=== PATIENT | male | born 1995 | race African-American/Black ===

== ENCOUNTER 2022-04-09 11:23 | Emergency (ER) | payer MEDICAID, SELFPAY ==
--- NOTE | ~2022-04-09 | US_ITS ---
EXAMINATION: US SCROTUM CLINICAL INFORMATION: Pain. Rule out torsion. History of torsion.. COMPARISON: November 30, 2020 and December 30, 2015 TECHNIQUE: A sonogram of the scrotum was performed assessing brothers-scale appearance and color Doppler flow. Spectral Doppler analysis of the arterial and venous flow were performed in the testes bilaterally. FINDINGS: RIGHT: Right testicle measures 5.2 x 2.4 x 2.9 cm, volume 19.3 mL. No focal testicular parenchymal lesions are visualized. Spectral Doppler analysis of the arterial and venous flow is normal in the right testis. Right epididymal head is normal in size. No right hydrocele or varicocele is seen. Right epididymal Doppler flow is normal. LEFT: Left testicle measures 4.2 x 2.0 x 3.6 cm, volume 15.8 mL. No focal testicular parenchymal lesions are visualized. Spectral Doppler analysis of the arterial and venous flow is normal in the left testis. Left epididymal head is normal in size. No left hydrocele or varicocele is seen. Left epididymal Doppler flow is normal. US/US scrotum IMPRESSION: Normal scrotal ultrasound examination without evidence of torsion.
[2022-04-09 11:34] VITALS: BP 122/84; PULSE 70; O2SAT 99; BMI 23.4
--- NOTE | 2022-04-09 11:37 | ED_ITS ---
HPI - Male Genitourinary General Chief complaint: Urogenital-Male Stated complaint: TESTICULAR PAIN, FROM [employer]USTODY PER EMS Time Seen by Provider: 04/09/22 11:32 Source: patient Mode of arrival: EMS History of Present Illness HPI Narrative: this is a 26 years old male under police custody presented with a chief complaint of left testicular pain x6 hour. 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 Denies any vomiting any diarrhea MD Complaint: testicle pain and testicle swelling Onset (ago): hour(s) (6) Duration: constant Location: left testicle Radiation: left testicle Quality: aching Relieving factors: none Exacerbating factors: none Related Data Allergies Allergy/AdvReac Type Severity Reaction Status Date / Time bee pollen [bee stings] Allergy Swelling Verified 04/09/22 11:36 Review of Systems Eyes: Eyes: Reports no additional eye complaints ENT: Reports system reviewed and no additional complaints, except as documented Cardiovascular: Cardiovascular: Reports no additional cardiovascular complaints Respiratory: Respiratory: Reports no additional respiratory complaints Musculoskeletal: Musculoskeletal: Reports no additional musculoskeletal complaints Endocrine: Endocrine: Reports no additional endocrine complaints [facility] Social History Social History Alcohol intake: current Alcohol intake frequency: holidays/special occasions only Patient Tobacco Use Status: Never used Tobacco Substance Use Type: Marijuana Advance Directives: No Advance Directives Information Provided: No Physical Exam Vital Signs: Vital Signs: BMI result Body Mass Index 23.4 Const: General: cooperative and healthy appearing HEENT: Head: Yes normal to inspection Face and sinus: Yes normal facial exam Mouth: Normal oral and palatal mucosa present Chest: Chest palpation & inspection: normal inspection of the chest Resp: Effort & Inspection: normal respiratory effort and able to speak in complete sentences Cardio: Rate: regular rate GI: Inspection: Yes normal to inspection Palpation (GI): Soft to palpation : Other: scrotum no swelling seen ,mild tenderness left teticle Course Reevaluation(s) Reevaluation #1: feeling better US negative ,requesting food MDM - Male Genitourinary Imaging Data scrotal US: Radiologist's impression: giles bilaterally. FINDINGS: RIGHT: Right testicle measures 5.2 x 2.4 x 2.9 cm, volume 19.3 mL. No focal testicular parenchymal lesions are visualized. Spectral Doppler analysis of the arterial and venous flow is normal in the right testis. Right epididymal head is normal in size. No right hydrocele or varicocele is seen. Right epididymal Doppler flow is normal. LEFT: Left testicle measures 4.2 x 2.0 x 3.6 cm, volume 15.8 mL. No focal testicular parenchymal lesions are visualized. Spectral Doppler analysis of the arterial and venous flow is normal in the left testis. Left epididymal head is normal in size. No left hydrocele or varicocele is seen. Left epididymal Doppler flow is normal. US/US scrotum IMPRESSION: Normal scrotal ultrasound examination without evidence of torsion. Discharge Plan Discharge Clinical Impression: Left testicular pain Patient Disposition: Home, Self-Care Instructions: Testicle Pain (ED) Additional Instructions: the ultrasound was normal, no torsion, follow-up with primary care physician you could take ibuprofen 800 mg every 8 hours as needed Referrals: Physician,None [Primary Care Provider] - 1 week Interventions: ED Discharge Assessment Last Done: 04/09/22 13:48 Discharge Date/Time: 04/09/22 13:49
[2022-04-09] MEDS: Ibuprofen 800 MG TABLET PO (11:49)
[2022-04-09] MEDS: Acetaminophen 325 MG TABLET 975 MG PO (13:18)
== END 2022-04-09 13:49 | disposition home or self-care (01) ==
PROVIDERS: Emergency Provider Emergency Medicine
DX: N50.812 Left testicular pain (principal)
CPT/HCPCS: 76870; 99284